=== PATIENT | male | born 1950 | race Caucasian/White ===

== ENCOUNTER 2016-06-29 21:55 | Emergency (ER) | payer MEDICARE ==
[~2016-06-29] VITALS: Ht 177.8 cm; Wt 120.2 kg
--- NOTE | 2016-06-29 22:07 | NUR ---
pt ambulatory to er bed 10. presents w/ puncture wound to rt hand w/ a mary nail at 1800 today. redness and swelling noted. pt concern because he is taking immunosupressants. not utd to tetanus shot. stable vitals. awaiting md mc.
--- NOTE | 2016-06-29 22:22 | NUR ---
luigi mix at bedside for eval.
[2016-06-29] MEDS ORDERED: TDAP [DIPH/PERTUSSIS/TET] 0.5 ML VIAL IM ONE ×2 (22:25→22:30)
[2016-06-29 22:40] VITALS: BP 136/81
--- NOTE | 2016-06-29 22:40 | NUR ---
Patient discharged to home in stable condition. Written and verbal after care instructions given. Patient verbalizes understanding of instruction.
== END 2016-06-29 22:53 | disposition home or self-care (01) ==
LOC: ER 21:58
DX: S61.431A Puncture wound without foreign body of right hand, initial encounter (principal); D89.9 Disorder involving the immune mechanism, unspecified; W22.8XXA Striking against or struck by other objects, initial encounter; Y92.89 Other specified places as the place of occurrence of the external cause; Y93.01 Activity, walking, marching and hiking; Y99.8 Other external cause status
CPT/HCPCS: 90471; 90715; 99283; A4606; Z7610